=== PATIENT | female | born 1995 | race Caucasian/White ===

== ENCOUNTER → 2022-05-20 15:50 | Outpatient (CLI) | payer OTHER, SELFPAY ==
--- NOTE | ~2022-05-20 | US_ITS ---
EXAMINATION: US OB transvaginal DATE: 05/20/2022 16:23 INDICATION: First trimester dating and viability assessment TECHNIQUE: Real-time pelvic transabdominal and transvaginal ultrasound was performed. COMPARISON: None. FINDINGS: The uterus measures 11.3 x 5.5 x 6.7 cm. There is an intrauterine gestational sac. A yolk sac is identified. heart motion is identified measuring 122 beats per minute (bpm) by M-mode Do ppler. The crown rump length measures 9 mm, which correlates with an estimated gestational age of 6 weeks and 6 day(s) (+/-) 4 day(s). The right ovary measures 2.5 x 1.2 x 2.1 cm. The left ovary measures 3.2 x 1.5 x 2.6 cm. There is nor mal vascular flow in the ovaries. There is no free fluid in the pelvis. IMPRESSION: 1. Live intrauterine with an estimated gestational age of 6 weeks and 6 day(s) (+/-) 4 day( s) and an estimated delivery date of 01/07/2023. Reviewed, dictated and finalized at location A. Y GUN STRIPER IMPRESSION: 1. Live intrauterine with an estimated gestational age of 6 weeks and 6 day(s) (+/-) 4 day(s) and an estimated delivery date of 01/07/2023.
== END ==
PROVIDERS: PCP Advanced Practice Midwife; Visit Provider Advanced Practice Midwife
DX: O36.80X0 Pregnancy with inconclusive fetal viability, not applicable or unspecified (principal); Z3A.01 Less than 8 weeks gestation of pregnancy
CPT/HCPCS: 76817

== ENCOUNTER → 2022-06-19 11:26 | Outpatient (CLI) | payer OTHER, SELFPAY ==
--- NOTE | ~2022-06-19 | US_ITS ---
EXAMINATION: US OB <= 14 weeks fetus INDICATION: with inconclusive viability TECHNIQUE: Sonography of the pelvis was performed by transabdominal and transvaginal techniques. COMPARISON: None. RESULT: Uterus: Orientation: Anteverted. 10.8 x 7.6 x 9.4 cm. Myometrium: homogeneous echogenicity. Gestation: - Intrauterine gestational sac: Single present. - Yolk sac: A small yolk sac is present, not directly measured. - Embryo: Single present. Crescentic fluid echogenicity area posterior to the head, neck, and upper trunk of the embryo. - Ideal rump length: 4.1 cm, corresponding gestational age 11 weeks, 0 days. -Gestational heart rate: present 179 bpm. -Subgestational hematoma: Absent . Right ovary: Not visualized. Left ovary: Not visualized. Pelvis free fluid: None. IMPRESSION: Single, live intrauterine gestation. Fluid echogenicity collection posterior to the head, neck, and u pper trunk of the embryo. This may simply represent normal amniotic fluid, although a large nuchal fo ld or hygroma could appear similarly. Consider chromosomal screening and recommend close sonographic and clinical follow-up. Estimated Gestational Age: 11 weeks, 0 days by crown rump length. BRENDON by ultrasound 01/08/2023. Reviewed, dictated and finalized at location K. UNT ADVISOR IMPRESSION: Single, live intrauterine gestation. Fluid echogenicity collection posterior to the head, neck, and upper trunk of the embryo. This may simply represent silvia l amniotic fluid, although a large nuchal fold or hygroma could appear similarl y. Consider chromosomal screening and recommend close sonographic and clinical follow-up. Estimated Gestational Age: 11 weeks, 0 days by crown rump length. BRENDON by ultra sound 01/08/2023.
== END ==
PROVIDERS: PCP Family Medicine; Visit Provider Advanced Practice Midwife
DX: O36.80X0 Pregnancy with inconclusive fetal viability, not applicable or unspecified (principal); Z3A.11 11 weeks gestation of pregnancy
CPT/HCPCS: 76801

== ENCOUNTER 2022-07-19 16:46 | Outpatient (CLI) | payer OTHER, SELFPAY ==
--- NOTE | ~2022-07-19 | US_ITS ---
EXAMINATION: US OB follow up DATE: 07/19/2022 17:22 INDICATION: demise. History of Pimentel's syndrome. TECHNIQUE: Real-time ultrasound of the pelvis was performed. COMPARISON: 06/19/2022. FINDINGS: There is a nonviable single fetus in breech presentation. The placenta is posterior. heart rate is 0 beats per minute (bpm). cardiac activity and movement are not present. The amnioti c fluid index is subjectively normal. Likely hydrops. The following biometric data were obtained: Biparietal diameter (BPD): 2.79 cm; head circumference (HC): 9.62 cm; femur length (FL): 1.68 cm. These measurements are internally concordant but considerably less than expected when compared to daniela endar dates. As single measurements, these parameters are each equal to the following estimated gestational ages w ith ranges of +/- 2 standard deviations: BPD: 15 weeks 0 days +/- 1 weeks 1 days. HC: 14 weeks 3 days +/- 1 weeks 1 days. FL: 15 weeks 0 days +/- 1 weeks 3 days. estimated gestational age based solely on measurements from this exam is 14 weeks 6 days +/- 1 weeks 0 days. IMPRESSION: Sonographic findings of failure. Results reported telephonically to Lauryn Rankin CNM by Dr. Muniz at 5:48 PM on 07/19/2022. Reviewed, dictated and finalized at location K. RPRISE SALES PERSON
== END 2022-07-19 16:47 | disposition home or self-care (01) ==
PROVIDERS: PCP Family Medicine; Visit Provider Advanced Practice Midwife
DX: O36.80X0 Pregnancy with inconclusive fetal viability, not applicable or unspecified (principal); Z3A.14 14 weeks gestation of pregnancy
CPT/HCPCS: 36415; 76816; 86850; 86900; 86901

== ENCOUNTER 2022-07-20 06:14 | Inpatient (IN) | payer OTHER, SELFPAY ==
[2022-07-20] VITALS (197 sets, daily range): BP systolic 73–156; BP diastolic 38–137; PULSE 58–300; RESP 18; TEMP 37.3–38.5; O2SAT 93–100; BMI 23.8
--- NOTE | 2022-07-20 07:58 | PC.NURSE ---
0750--Ángel Rankin CNM at BS with pt., discussing POC and doing BS u/s for pt.
[2022-07-20 08:02] LABS: Basophils Absolute Auto 0.1 K/mm3 (0.0-0.1); Basophils Percent Auto 0.9 % (0.2-1.2); Eosinophils Absolute Auto 0.1 K/mm3 (0-0.3); Eosinophils Percent Auto 1.6 % (0-4.4); Hematocrit 37.8 % (37.0-47.0); Hemoglobin 13.1 g/dL (12.0-15.0); Immature Granulocyte Absolute 0.06 K/mm3 (0.00-0.031); Immature Granulocyte Percent A 0.9 % (0-0.5); Lymphocytes Absolute Auto 2.13 K/mm3 (0.9-3.2); Lymphocytes Percent Auto 33.5 % (18.3-44.2); Mean Corpuscular HGB Conc 34.7 g/dl (32-36); Mean Corpuscular Hemoglobin 31.3 pg (26-34); Mean Corpuscular Volume 90.4 fl (80-100); Mean Platelet Volume 11.8 fl (7.4-10.4); Monocytes Absolute Auto 0.5 K/mm3 (0.1-0.6); Monocytes Percent Auto 7.2 % (2.6-8.5); Neutrophils Absolute Auto 3.6 K/mm3 (1.3-6.7); Neutrophils Percent Auto 55.9 % (45.5-73.1); Platelet Count Result 145 k/mm3 (150-375); Red Blood Count 4.18 M/mm3 (4.2-5.4); Red Cell Distribution Width 12.5 % (11.5-14.5); White Blood Count 6.4 K/mm3 (4.5-10.0)
[2022-07-20] MEDS: miSOPROStol 200 MCG TABLET 600 MCG VAGINAL ×3 (08:04→18:48)
--- NOTE | 2022-07-20 08:09 | WPDOBADMIT ---
Obstetrics - Admit Note Admission Note: record reviewed. No pertinent additions to the history and/or any subsequent changes in the physical findings that are not consistent with the expected course of the were found. Additions to the history and/or subsequent changes in the physical findings follow. IUFD at 15 weeks.
--- NOTE | 2022-07-20 08:10 | PM.OBPNLAB ---
Pain Control Date/time seen: 07/20/22 0755 Comments: Denies pain Pelvic Exam Dilation (cm): 0 (closed, long, high) station: -4 Amniotic membrane status: Intact Contractions Monitor mode: None Status Comments: IUFD Assessment and Plan Comments: CNM at bedside. Limited bedside US performed and pictures given to pt. Fetus with no cardiac activity. vertex/oblique position identified. Discussed plan of care and all questions answered. 600mct misoprostol placed vaginally. Spouse present and supportive.
[2022-07-20 08:42] LABS: Hepatitis B Surface Antigen Negative (Negative); Rubella IgG Antibody 2.2 IU/ML
[2022-07-20 08:49] LABS: HIV 1/2 Ab P24 Ag Result Negative (Negative)
--- NOTE | 2022-07-20 08:53 | LDADM ---
This patient, Celina Sherwood, was admitted to Labor/Delivery/Recovery 110 on 07/20/22 at 06:14. Plans for labor, pain management and were discussed with patient. Patient/family oriented to hospital policies and general routines including ID bracelet, bed and alarms, visiting hours, pain management, procedures, bathroom and other care routines, personal items, smoking policy, room service/diet and guest tray routines, and visiting hours. Patient/Family are encouraged to report perceived risks to care and to ask questions if they do not understand what they are told or what they should do. See OBIX for further documentation.
[2022-07-20 09:07] LABS: Free T4 Free Thyroxine 1.06 ng/mL (0.78-2.19)
[2022-07-20 09:11] LABS: Glucose 79 mg/dL (65-110)
[2022-07-20 09:41] LABS: Amphetamine Screen Urine Negative (Negative); Barbiturate Screen Urine Negative (Negative); Benzodiazepines Screen Urine Negative (Negative); Cannabinoid Screen Urine Negative (Negative); Cocaine Screen Urine Negative (Negative); Methadone Screen Urine Negative (Negative); Opiate Screen Urine Negative (Negative); Phencyclidine Screen Urine Negative (Negative)
--- NOTE | 2022-07-20 12:22 | PM.OBPNLAB ---
Pain Control Date/time seen: 07/20/22 12:15 Pain control: tolerating well Comments: feeling occasional cramping Pelvic Exam Dilation (cm): 0 (closed, long, high) station: -4 Amniotic membrane status: Intact Contractions Monitor mode: Palpation Contraction pattern: Irregular Contraction intensity: Mild Status Comments: IUFD Assessment and Plan Comments: 2nd dose of misoprostol placed. Cervix remains closed and firm. No bleeding. Discussed expectations and plan of care.
--- NOTE | 2022-07-20 12:30 | PC.NURSE ---
1230--This RN at bedside, patient introductions made. Introduced the Share program and resources that can be available through Share. Discussed and findings along the way with 's genetic disposition. Parents tearful, but appropriately engaging in conversation. Discussed mementos, photos, and plans for disposition of baby. Discussed plans to remain in contact with patient to check in, patient thankful and appreciative of support offered.
[2022-07-20 12:32] LABS: Rapid Plasma Reagin Non-Reactive (NonReactive)
[2022-07-20] MEDS: ONDANSETRON INJ 4 MG/2 ML VIAL IV PUSH (12:49)
[2022-07-20] MEDS: fentaNYL CITRATE INJ (*CRX) 100 MCG/2 ML VIAL IV PUSH (12:55)
[2022-07-20] MEDS: LACTATED RINGERS 1,000 ML 125 ML IV CONT ×2 (13:27→15:48)
--- NOTE | 2022-07-20 13:51 | WPDANESEPP ---
Anes - Eval Pre Procedure Procedure: Labor epidural Date/Time: 07/20/22 13:51 Surgeon: Beto Preop Diagnosis: Pain during labor Pre Op Diagnosis: IUFD/IOL Patient Data Age: 27 Gender: F Height: 1.57 m Weight: 59.09 kg Last Vital Signs Temp 37.5 C 07/20/22 12:14 Pulse 86 07/20/22 13:46 BP 89/42 L 07/20/22 13:46 Pulse Ox 100 07/20/22 13:50 Allergies Allergy/AdvReac Type Severity Reaction Status Date / Time amoxicillin Allergy Rash Verified 07/20/22 07:52 Laboratory Tests 07/20/22 07/20/22 07/20/22 06:57 07:33 07:33 WBC 6.4 K/mm3 K/mm3 (4.5-10.0) RBC 4.18 M/mm3 L M/mm3 (4.2-5.4) Hgb 13.1 g/dL g/dL (12.0-15.0) Hct 37.8 % % (37.0-47.0) MCV 90.4 fl fl (80-100) MCH 31.3 pg pg (26-34) MCHC 34.7 g/dl g/dl (32-36) RDW 12.5 % % (11.5-14.5) Plt Count 145 k/mm3 L k/mm3 (150-375) MPV 11.8 fl H fl (7.4-10.4) Immature Gran % (Auto) 0.9 % H % (0-0.5) Neut % (Auto) 55.9 % % (45.5-73.1) Lymph % (Auto) 33.5 % % (18.3-44.2) [place] % (Auto) 7.2 % % (2.6-8.5) Eos % (Auto) 1.6 % % (0-4.4) Baso % (Auto) 0.9 % % (0.2-1.2) Lymph # (Auto) 2.13 K/mm3 K/mm3 (0.9-3.2) [place] # (Auto) 0.5 K/mm3 K/mm3 (0.1-0.6) Eos # (Auto) 0.1 K/mm3 K/mm3 (0-0.3) Baso # (Auto) 0.1 K/mm3 K/mm3 (0.0-0.1) Abs Immat Gran (auto) 0.06 K/mm3 H K/mm3 (0.00-0.031) Absolute Neuts (auto) 3.6 K/mm3 K/mm3 (1.3-6.7) Absolute Nucleated RBC 0.0 K/mm3 K/mm3 (0.0-0.012) Nucleated RBC % 0.0 % % (0.0-0.2) LA PTT Screen Pending dRVVT Screen Pending dRVVT Additional Test Pending Lupus Anticoag Interp Pending Glucose Vitamin D 25-Hydroxy TSH Free T4 Urine Opiates Screen Negative (Negative) Urine Methadone Screen Negative (Negative) Ur Barbiturates Screen Negative (Negative) Ur Phencyclidine Scrn Negative (Negative) Ur Amphetamine Screen Negative (Negative) U Benzodiazepines Scrn Negative (Negative) Urine Cocaine Screen Negative (Negative) U Cannabinoids Screen Negative (Negative) Beta-2-GPI IgG Ab Beta-2-GPI IgA Ab Beta-2-GPI IgM Ab Anti-Cardiolipin IgG Ab Anti-Cardiolipin IgA Ab Anti-Cardiolipin IgM Ab RPR CMV IgG Ab CMV IgM Ab Hep Bs Antigen HIV 1&2 Ab/P24 Ag 4thGn Rubella IgG Antibody Blood Type Antibody Screen KB Hemoglobin 07/20/22 07/20/22 07/20/22 07:33 07:33 07:33 WBC RBC Hgb Hct MCV MCH MCHC RDW Plt Count MPV Immature Gran % (Auto) Neut % (Auto) Lymph % (Auto) [place] % (Auto) Eos % (Auto) Baso % (Auto) Lymph # (Auto) [place] # (Auto) Eos # (Auto) Baso # (Auto) Abs Immat Gran (auto) Absolute Neuts (auto) Absolute Nucleated RBC Nucleated RBC % LA PTT Screen dRVVT Screen dRVVT Additional Test Lupus Anticoag Interp Glucose 79 mg/dL mg/dL (65-110) Vitamin D 25-Hydroxy TSH 3.830 uIU/mL uIU/mL (0.465-4.680) Free T4 Urine Opiates Screen Urine Methadone Screen Ur Barbiturates Screen Ur Phencyclidine Scrn Ur Amphetamine Screen U Benzodiazepines S
[2022-07-20] MEDS: LACTATED RINGERS 1,000 ML 999 ML IV CONT ×2 (13:53→14:32)
[2022-07-20 14:36] LABS: Vitamin D 25 Hydroxy 40.9 ng/mL
--- NOTE | 2022-07-20 19:17 | PM.OBPNLAB ---
Pain Control Date/time seen: 07/20/22 4034 Pain control: epidural Pelvic Exam Dilation (cm): 0 (closed, long, high) Effacement (%): 50 station: -4 Amniotic membrane status: Intact Comments: only able to palpate anterior aspect of cervix. Unable to palpate os. Contractions Monitor mode: Palpation Contraction pattern: Irregular Contraction intensity: Mild Status Comments: IUFD Assessment and Plan Comments: Misoprostol 600mcg (dose #3 placed vaginally). Spouse present and supportive. Plan to have RN check cervix in 6 hours. If unchanged, will plan dose #4.
--- NOTE | 2022-07-20 21:23 | PM.OBPRVD ---
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 IUFD diagnosed at 15 weeks 6 days. Narrative: IUFD diagnosed on July 19 in the office and pt sent to ultrasound for final confirmation. Admitted this am for IOL. Was given 3 doses of 200mcg Misoprostol vaginally. She precipitously delivered a stillborn infant. CNM called and arrived at hospital with placenta still undelivered. Bleeding stable and cervix firm, fingertip dilated, and posterior. The cervix was periodically evaluated and at about one hour, the placenta was palpated partially in the cervix and there was about 100ml dark red blood expulsed. A speculum was inserted into the vagina and the placenta was slowly grasped and gentle traction applied. More of the placenta appeared at the os but CNM was unable to remove it entirely. Dr. Pérez to bedside and the remainder of the placenta was manually removed in pieces. Ancef 2 grams will be given for infection phophylaxis. [place] Baby Date of : 07/20/22 Time of : 20:27 Weeks of gestation at delivery: 15 gender: Female Weight (ounces): 0 (38 grams) presentation: vertex Placenta delivery description: Manual Removal Cord Vessel Description: Clamped/Cut score one minute: 0 score five minutes: 0 score ten minutes: 0
--- NOTE | 2022-07-20 21:27 | PM.OBDSVD ---
DS: Admitting Diagnosis Discharge Date 07/21/2022 Admitting Diagnosis 27 y.o. . IUFD at 15 weeks 3 days. Rubella Non-Immune DS: Discharge Diagnosis Discharge Diagnosis (1) IUFD (intrauterine ): Status: Acute (2) (normal spontaneous vaginal delivery): Code(s): O80 - Encounter for full-term uncomplicated delivery Status: Acute (3) Grieving: Code(s): F43.21 - Adjustment disorder with depressed mood Status: Acute OB - DS: Summary Hospital Course Hospital Course: uncomplicated OB Procedures : Ultrasound OB Procedures Intrapartum: Spontaneous Vag Delivery OB Procedures: : Antibiotics and Rubella lg Peripartum Data Infant Delivery Method: Natural Vaginal Laceration Description: None Episiotomy description: None complications: none Status at Discharge Overall status at discharge: patient is progressing back to baseline Time Spent with Patient Time attestation: Total time spent providing and/or coordinating discharge services: Exam Narrative: Alert and oriented. Mood is pleasant and cooperative. Urinating without difficulty. Denies passing any large clots. Perineum with minimal edema. Fundus firm and below umbilicus. Const: General: cooperative, healthy appearing, no acute distress and alert Orientation/consciousness: patient oriented x3 Limitations: no limitations Resp: Effort & Inspection: normal respiratory effort Auscultation: clear to auscultation bilaterally Cardio: Rate: regular rate GI: Inspection: normal to inspection Neuro: General: patient oriented x3 Extrem: General: normal to inspection Psych: Appearance: grossly normal Mental Status: mental status grossly normal Affect: normal affect Thought process: Normal thought process present DS: Data Data Completed and Pending Labs on day of discharge: Labs from last 24 hours 07/20/22 07/20/22 07/20/22 07:34 07:34 07:34 WBC RBC Hgb Hct MCV MCH MCHC RDW Plt Count MPV Immature Gran % (Auto) Neut % (Auto) Lymph % (Auto) [place] % (Auto) Eos % (Auto) Baso % (Auto) Lymph # (Auto) [place] # (Auto) Eos # (Auto) Baso # (Auto) Abs Immat Gran (auto) Absolute Neuts (auto) Absolute Nucleated RBC Nucleated RBC % LA PTT Screen dRVVT Screen dRVVT Additional Test Lupus Anticoag Interp Glucose Vitamin D 25-Hydroxy TSH Free T4 Urine Opiates Screen Urine Methadone Screen Ur Barbiturates Screen Ur Phencyclidine Scrn Ur Amphetamine Screen U Benzodiazepines Scrn Urine Cocaine Screen U Cannabinoids Screen Beta-2-GPI IgG Ab Beta-2-GPI IgA Ab Beta-2-GPI IgM Ab Anti-Cardiolipin IgG Ab Anti-Cardiolipin IgA Ab Anti-Cardiolipin IgM Ab RPR Non-reactive CMV IgG Ab CMV IgM Ab Hep Bs Antigen Negative HIV 1&2 Ab/P24 Ag 4thGn Rubella IgG Antibody 2.2 L Blood Type A Positive Antibody Screen Negative KB Hemoglobin Negative 07/20/22 07/20/22 07/20/22 07:34 07:34 07:33 WBC RBC Hgb Hct MCV MCH MCHC RDW Plt Count MPV Immature Gran % (Auto) Neut % (Auto) Lymph % (Auto) [place] % (Auto) Eos % (Auto) Baso % (Auto) Lymph # (Auto) [place] # (Auto) Eos # (Auto) Baso # (Auto) Abs Immat Gran (auto) Absolute Neuts (auto) Absolute Nucleated RBC Nucleated RBC % LA PTT Screen dRVVT Screen dRVVT Additional Test Lupus Anticoag Interp Glucose Vitamin D 25-Hydroxy 40.9 TSH Free T4 1.06 Urine Opiates Screen Urine Methadone Screen Ur Barbiturates Screen Ur Phencyclidine Scrn Ur Amphetamine Screen U Benzodiazepines Scrn Urine Cocaine Screen U Cannabinoids Screen Beta-2-GPI IgG Ab Beta-2-GPI IgA Ab Beta-2-GPI IgM Ab Anti-Cardiolipin IgG Ab Pending Anti-Cardiolipin IgA Ab Pendin
--- NOTE | 2022-07-20 21:34 | PM.IMHP ---
H&P: HPI History of Present Illness Date/Time: 07/20/22 21:00 Chief Complaint: None Narrative: 27 y.o. . s/p vaginal of IUFD at 15weeks, 4 days. Review of Systems Review of Systems: All systems reviewed & are unremarkable except as noted in HPI and below Constitutional: Constitutional: Reports as per HPI Genitourinary: Comments: Gutierrez catheter patent and draining clear, yellow urine. [facility] Social History Social History Smoking status: Never smoker Second hand tobacco smoke exposure: No Substance use: never Lack of Transportation: No Lack of Food: Never True Current Housing: I Have Housing Concerned About Future Housing: No Difficulty Paying Gas/Electric Bills: No Difficulty Paying for Meds: No Currently Unemployed: No Education: Master's Degree or Higher Difficulty w/ Childcare or Family Care: No Spiritual care concerns: No Meds Home Medications and Allergies Allergies Allergy/AdvReac Type Severity Reaction Status Date / Time amoxicillin Allergy Rash Verified 07/20/22 07:52 Vital Signs Vital Signs - 24 hr 07/20/22 07:14 07/20/22 08:09 07/20/22 12:14 Temperature 99.2 F 99.5 F Pulse Rate 95 92 97 Respiratory Rate Blood Pressure 112/76 124/81 108/68 Pulse Oximetry 07/20/22 12:53 07/20/22 12:58 07/20/22 13:03 Temperature Pulse Rate Respiratory Rate Blood Pressure Pulse Oximetry 100 100 100 07/20/22 13:27 07/20/22 13:29 07/20/22 13:32 Temperature Pulse Rate 78 97 Respiratory Rate Blood Pressure 96/51 L 114/38 L Pulse Oximetry 100 100 07/20/22 13:37 07/20/22 13:39 07/20/22 13:42 Temperature Pulse Rate 82 Respiratory Rate Blood Pressure 103/47 L Pulse Oximetry 100 100 07/20/22 13:46 07/20/22 13:47 07/20/22 13:50 Temperature Pulse Rate 86 Respiratory Rate Blood Pressure 89/42 L Pulse Oximetry 100 100 07/20/22 13:55 07/20/22 13:57 07/20/22 13:59 Temperature Pulse Rate 102 H Respiratory Rate Blood Pressure 103/54 L 120/75 Pulse Oximetry 100 07/20/22 14:00 07/20/22 14:01 07/20/22 14:03 Temperature Pulse Rate 153 H 90 Respiratory Rate Blood Pressure 92/46 L 112/64 Pulse Oximetry 100 07/20/22 14:05 07/20/22 14:06 07/20/22 14:09 Temperature Pulse Rate 83 79 Respiratory Rate Blood Pressure 114/61 108/49 L Pulse Oximetry 100 07/20/22 14:10 07/20/22 14:11 07/20/22 14:13 Temperature Pulse Rate 115 H 300 H Respiratory Rate Blood Pressure 84/53 L 107/56 L Pulse Oximetry 100 07/20/22 14:15 07/20/22 14:16 07/20/22 14:19 Temperature Pulse Rate 170 H 94 Respiratory Rate Blood Pressure 114/72 73/46 L Pulse Oximetry 95 07/20/22 14:20 07/20/22 14:21 07/20/22 14:23 Temperature Pulse Rate 95 94 Respiratory Rate Blood Pressure 84/58 L 81/66 L Pulse Oximetry 100 07/20/22 14:25 07/20/22 14:26 07/20/22 14:29 Temperature Pulse Rate 92 121 H Respiratory Rate Blood Pressure 115/56 L 74/56 L Pulse Oximetry 100 07/20/22 14:30 07/20/22 14:31 07/20/22 14:34 Temperature Pulse Rate 94 Respiratory Rate Blood Pressure 96/71 L 156/137 H Pulse Oximetry 100 07/20/22 14:35 07/20/22 14:37 07/20/22 14:38 Temperature Pulse Rate 132 H 101 H Respiratory Rate Blood Pressure 91/48 L 84/71 L Pulse Oximetry 100 07/20/22 14:40 07/20/22 14:41 07/20/22 14:43 Temperature Pulse Rate 97 110 H Respiratory Rate Blood Pressure 104/45 L 119/55 L Pulse Oximetry 100 07/20/22 14:45 07/20/22 14:46 07/20/22 14:48 Temperature Pulse Rate 98 94 Respiratory Rate Blood Pressure 112/69 105/44 L Pulse Oximetry 100 07/20/22 14:50 07/20/22 14:55 07/20/22 15:00 Temperature Pulse Rate Respiratory Rate Blood Pressure Pulse Oximetry 100 100 100 07/20/22 15:01 07/20/22 15:07 01
--- NOTE | 2022-07-20 22:45 | PC.NURSE ---
2247--This RN at bedside with patient and her . Discussed delivery, feelings at this time. RN stated that pictures have been taken, hand/footprints done and infant is available for them if/when they are ready. Patient and had many questions regarding the state of the baby to help them decide on their ability to see or hold her. We discussed that she would remain on our unit, so she would be available to them at any time. Parents thankful for the time to think things over and process.
[2022-07-20] MEDS: ceFAZolin 2 GM/D5W 50 ML 2 GM/50 ML BAG IVPB (23:00)
[2022-07-21] VITALS (17 sets, daily range): BP systolic 80–100; BP diastolic 48–63; PULSE 74–93; RESP 14–16; TEMP 36.9–37.1; O2SAT 97–99
--- NOTE | 2022-07-21 06:15 | PC.NURSE ---
Report given to Toño Heredia RN
--- NOTE | 2022-07-21 06:37 | PC.NURSE ---
Called 911 Operator, Donald Sauer, to report demise. Nothing further needs to be done.
--- NOTE | 2022-07-21 07:31 | PC.NURSE ---
MTS called to report demise. Reported to Rafaela at [facility].
--- NOTE | 2022-07-21 07:48 | PM.OBPNVD ---
OB - PN: Subj Subjective Date/time seen: 07/21/22 07:35 Patient comments: no complaints and pain well controlled baby status: stillbirth OB - PN: Obj Data Labs 07/20/22 07:33 07/20/22 07:33 Labs: Laboratory Results - last 24 hr 07/20/22 07/20/22 07/20/22 06:57 07:33 07:33 WBC 6.4 RBC 4.18 L Hgb 13.1 Hct 37.8 MCV 90.4 MCH 31.3 MCHC 34.7 RDW 12.5 Plt Count 145 L MPV 11.8 H Immature Gran % (Auto) 0.9 H Neut % (Auto) 55.9 Lymph % (Auto) 33.5 [place] % (Auto) 7.2 Eos % (Auto) 1.6 Baso % (Auto) 0.9 Lymph # (Auto) 2.13 [place] # (Auto) 0.5 Eos # (Auto) 0.1 Baso # (Auto) 0.1 Abs Immat Gran (auto) 0.06 H Absolute Neuts (auto) 3.6 Absolute Nucleated RBC 0.0 Nucleated RBC % 0.0 Glucose 79 Vitamin D 25-Hydroxy TSH 3.830 Free T4 Urine Opiates Screen Negative Urine Methadone Screen Negative Ur Barbiturates Screen Negative Ur Phencyclidine Scrn Negative Ur Amphetamine Screen Negative U Benzodiazepines Scrn Negative Urine Cocaine Screen Negative U Cannabinoids Screen Negative RPR Hep Bs Antigen HIV 1&2 Ab/P24 Ag 4thGn Rubella IgG Antibody Blood Type Antibody Screen KB Hemoglobin 07/20/22 07/20/22 07/20/22 07:33 07:33 07:34 WBC RBC Hgb Hct MCV MCH MCHC RDW Plt Count MPV Immature Gran % (Auto) Neut % (Auto) Lymph % (Auto) [place] % (Auto) Eos % (Auto) Baso % (Auto) Lymph # (Auto) [place] # (Auto) Eos # (Auto) Baso # (Auto) Abs Immat Gran (auto) Absolute Neuts (auto) Absolute Nucleated RBC Nucleated RBC % Glucose Vitamin D 25-Hydroxy 40.9 TSH Free T4 1.06 Urine Opiates Screen Urine Methadone Screen Ur Barbiturates Screen Ur Phencyclidine Scrn Ur Amphetamine Screen U Benzodiazepines Scrn Urine Cocaine Screen U Cannabinoids Screen RPR Hep Bs Antigen HIV 1&2 Ab/P24 Ag 4thGn Negative Rubella IgG Antibody Blood Type Antibody Screen KB Hemoglobin 07/20/22 07/20/22 07/20/22 07:34 07:34 07:34 WBC RBC Hgb Hct MCV MCH MCHC RDW Plt Count MPV Immature Gran % (Auto) Neut % (Auto) Lymph % (Auto) [place] % (Auto) Eos % (Auto) Baso % (Auto) Lymph # (Auto) [place] # (Auto) Eos # (Auto) Baso # (Auto) Abs Immat Gran (auto) Absolute Neuts (auto) Absolute Nucleated RBC Nucleated RBC % Glucose Vitamin D 25-Hydroxy TSH Free T4 Urine Opiates Screen Urine Methadone Screen Ur Barbiturates Screen Ur Phencyclidine Scrn Ur Amphetamine Screen U Benzodiazepines Scrn Urine Cocaine Screen U Cannabinoids Screen RPR Non-reactive Hep Bs Antigen Negative HIV 1&2 Ab/P24 Ag 4thGn Rubella IgG Antibody 2.2 L Blood Type A Positive Antibody Screen Negative KB Hemoglobin Negative OB - PN A/P Time Spent With Patient Time: Total time spent is greater than 50% in coordination of care (as documented) at patient's floor/unit and/or counseling patient: Review of Systems Review of Systems: All systems reviewed & are unremarkable except as noted in HPI and below Exam Narrative: Alert and oriented. Mood is pleasant and cooperative. Urinating without difficulty. Denies passing any large clots. Perineum with minimal edema. Fundus firm and below umbilicus. Const: General: cooperative, healthy appearing, no acute distress and alert Orientation/consciousness: patient oriented x3 Limitations: no limitations Resp: Effort & Inspection: normal respiratory effort Auscultation: clear to auscultation bilaterally Cardio: Rate: regular rate GI: Inspection: normal to inspection Neuro: General: patient oriented x3 Extrem: General: normal to inspection Psych: Appearance: grossly norm
[2022-07-21] MEDS: MEASLES,MUMPS,RUBELLA VACCINE 0.5 ML VIAL SUB-Q (10:04)
[2022-07-21] MEDS: MULTIVIT/MIN/PREN/FOL AC/IRON TABLET 1 TAB PO (10:04)
[2022-07-21 11:18] LABS: Hematocrit 32.6 % (37.0-47.0); Hemoglobin 11.2 g/dL (12.0-15.0); Mean Corpuscular HGB Conc 34.4 g/dl (32-36); Mean Corpuscular Hemoglobin 31.6 pg (26-34); Mean Corpuscular Volume 92.1 fl (80-100); Mean Platelet Volume 12.3 fl (7.4-10.4); Platelet Count Result 127 k/mm3 (150-375); Red Blood Count 3.54 M/mm3 (4.2-5.4); Red Cell Distribution Width 12.4 % (11.5-14.5)
[2022-07-21 11:19] LABS: Basophils Percent Auto 0.5 % (0.2-1.2); Eosinophils Percent Auto 1.4 % (0-4.4); Immature Granulocyte Absolute 0.06 K/mm3 (0.00-0.031); Immature Granulocyte Percent A 0.7 % (0-0.5); Lymphocytes Percent Auto 28.6 % (18.3-44.2); Monocytes Percent Auto 9.1 % (2.6-8.5); Neutrophils Absolute Auto 4.8 K/mm3 (1.3-6.7); Neutrophils Percent Auto 59.7 % (45.5-73.1)
[2022-07-21 11:20] LABS: Eosinophils Absolute Auto 0.1 K/mm3 (0-0.3); Monocytes Absolute Auto 0.7 K/mm3 (0.1-0.6); White Blood Count 8.1 K/mm3 (4.5-10.0)
[2022-07-23 03:18] LABS: Anti Cardio Antibody IgM <2.0 MPL-U/mL (<20.0); Anti Cardiolipin Antibody IgA <2.0 APL-U/mL (<20.0); Anti Cardiolipin Antibody IgG <2.0 GPL-U/mL (<20.0)
[2022-07-23 16:24] LABS: CMV IgG Antibody <0.60 U/mL (<0.60)
[2022-07-24 12:09] LABS: CMV IgM Antibody <30.00 AU/mL (<30.00)
[2022-07-26 11:29] LABS: Lupus dRVVT Screen 32 sec (<=45); PTT-LA Screen 30 sec (<=40)
== END 2022-07-21 10:30 | disposition home or self-care (01) | DRG 779 ==
PROVIDERS: Admitting Provider Advanced Practice Midwife; PCP Family Medicine; Referring Provider Advanced Practice Midwife; Visit Provider Advanced Practice Midwife
DX: O02.1 Missed abortion (principal); Z3A.15 15 weeks gestation of pregnancy; O35.14 Maternal care for (suspected) chromosomal abnormality in fetus, Turner Syndrome; O99.342 Other mental disorders complicating pregnancy, second trimester; F43.21 Adjustment disorder with depressed mood
CPT/HCPCS: 36415; 76816; 80307; 82306; 82947; 84439; 84443; 85025; 85460; 85613; 85730; 86146; 86147; 86592; 86644; 86645; 86703; 86762; 86850; 86900; 86901; 87340; 88305; 88307; 90710; A9270; G0432; J0131; J0690; J2405; J2795; J3010; J7120

== ENCOUNTER → 2023-05-31 15:53 | Outpatient (CLI) | payer OTHER, SELFPAY ==
--- NOTE | ~2023-05-31 | US_ITS ---
Pelvic ultrasound. Clinical History: First trimester , family history of congenital malformation Technique: Realtime transabdominal and transvaginal scanning of the pelvis was performed. Color flow Doppler and Doppler spectral analysis were performed. Findings: The uterus is anteverted, and contains an intrauterine gestation. [place]-rump length of 2.5 cm corresponds to an estimated gestational age of 9 weeks 1 day. heart rate is 172 bpm. Small s ubchorionic hemorrhage measures 2.0 x 1.2 x 0.5 cm The right ovary measures 2.5 x 1.8 x 2.3 cm. No significant right ovarian or adnexal mass is seen. The left ovary measures 3.7 x 1.3 x 3.3 cm. No significant left ovarian or adnexal mass is seen. There is no evidence of free fluid in the cul de sac. Impression: Live intrauterine gestation with estimated gestational age of 9 weeks 1 day. heart rate is 172 bpm. Sonographic BRENDON is 01/02/2024. Small subchorionic hemorrhage, as noted above. Reviewed, dictated and finalized at location M. OPERATOR Impression: Live intrauterine gestation with estimated gestational age of 9 weeks 1 day. Fe elisa heart rate is 172 bpm. Sonographic BRENDON is 01/02/2024. Small subchorionic hemorrhage, as noted above.
== END ==
PROVIDERS: PCP Advanced Practice Midwife; Visit Provider Advanced Practice Midwife
DX: O46.90 Antepartum hemorrhage, unspecified, unspecified trimester (principal); O36.80X0 Pregnancy with inconclusive fetal viability, not applicable or unspecified; Z82.79 Family history of other congenital malformations, deformations and chromosomal abnormalities; Z3A.00 Weeks of gestation of pregnancy not specified
CPT/HCPCS: 76801

== ENCOUNTER → 2023-06-30 15:44 | Outpatient (CLI) | payer OTHER, SELFPAY ==
--- NOTE | ~2023-06-30 | US_ITS ---
EXAMINATION: US OB follow up DATE: 06/30/2023 16:15 INDICATION: Maternal care for specified problems. Subchorionic hematoma. TECHNIQUE: Real-time ultrasound of the pelvis was performed. The interpreting radiologist was not pre sent for the study. COMPARISON: None. FINDINGS: There is a single living fetus in vertex presentation. The placenta is anterior and not low-lying wi th caudal margin 5.6 cm from the internal cervical os. The previously identified small subchorionic h ematoma is not visualized and has likely resolved. heart rate is 161 beats per minute (bpm). Th e amniotic fluid volume is subjectively normal. The following biometric data were obtained: BPD: 2.5 cm -> 14 weeks 2 days Head circumference: 9.7 cm -> 14 weeks 3 days Abdominal circumference: 7.5 cm -> 14 weeks 0 days Femur length: 1.0 cm -> 12 weeks 6 days These measurements are concordant. Head circumference to abdominal circumference ratio: 1.29 (normal range 1.10-1.34). Estimated weight: 77 g (+/-) 12 g. IMPRESSION: 1. Single living fetus in vertex presentation with heart rate of 161 bpm. 2. Estimated weight is 35th percentile by Hadlock criteria when 12/30/2023 is used as the estima brayden date of delivery (BRENDON). Please correlate with clinical information or earlier ultrasounds for mos t accurate BRENDON. 3. Normal anterior placenta. Prior subchorionic hematoma is no longer appreciated. Reviewed, dictated and finalized at location A. IMPRESSION: 1. Single living fetus in vertex presentation with heart rate of 161 bpm. 2. Estimated weight is 35th percentile by Hadlock criteria when 12/30/2023 is used as the estimated date of delivery (BRENDON). Please correlate with clinica l information or earlier ultrasounds for most accurate BRENDON. 3. Normal anterior placenta. Prior subchorionic hematoma is no longer appreciat ed.
== END ==
PROVIDERS: PCP Advanced Practice Midwife; Visit Provider Advanced Practice Midwife
DX: O36.8910 Maternal care for other specified fetal problems, first trimester, not applicable or unspecified (principal); Z3A.00 Weeks of gestation of pregnancy not specified
CPT/HCPCS: 76816

== ENCOUNTER → 2023-08-01 15:28 | Outpatient (CLI) | payer OTHER, SELFPAY ==
--- NOTE | ~2023-08-01 | US_ITS ---
US OB /maternal detail DATE: 08/01/2023 16:02 INDICATION: anatomy screen TECHNIQUE: Real-time imaging and Doppler analysis COMPARISON: 06/30/2023 obstetrical ultrasound FINDINGS: Live dupree intrauterine gestation, fetus in transverse lie, head to maternal righ t. Anterior low-lying placenta, lower margin extending into the internal os. Cervical length is 4 cm. Subjectively normal amount of amniotic fluid. ventricles, choroid plexus, cerebellum, cisterna magna and nuchal fold are normal. upper lip, spine, diaphragm appear normal. Fluid is demonstrated in the stomach and urinary bladder. No hydronephrosis. 4 chamber heart with heart rate of 140 bpm. Three-vessel umbilical cord with normal insertion at abdominal wall. 4 extremities are do cumented. Biparietal diameter 4.0 cm; 18 weeks 3 days Head circumference 15.64 cm; 18 weeks 4 days Abdominal circumference 12.74 cm; 18 weeks 2 days Femur length 2.59 cm; 17 weeks 6 days Composite age by Hadlock formula is 18 weeks 2 days +/- 1 week 2 days with BRENDON of 12/31/2023, compared to 01/02/2024 by LMP. Estimated weight is 226.4 +/- 34 g. Estimated weight-GP: 54.9% Head circumference/abdominal circumference 1.23, within normal range of 1.08-1.27 Femur length/head circumference 16.56, within normal range of 15.89-18.09 IMPRESSION: Composite age by Hadlock formula is 18 weeks 2 days +/- 1 week 2 days with BRENDON of 12/31/19 24, compared to 01/02/2024 by LMP. Estimated weight is 226.4 +/- 34 g. Transverse lie Low lying placenta Normal amount of amniotic fluid Reviewed, dictated and finalized at Location A. Reviewed, dictated and finalized at location L. DRIVER IMPRESSION: Composite age by Hadlock formula is 18 weeks 2 days +/- 1 week 2 da ys with BRENDON of 12/31/2023, compared to 01/02/2024 by LMP. Estimated weight is 226.4 +/- 34 g. Transverse lie Low lying placenta Normal amount of amniotic fluid
== END ==
PROVIDERS: PCP Advanced Practice Midwife; Visit Provider Advanced Practice Midwife
DX: O44.42 Low lying placenta NOS or without hemorrhage, second trimester (principal); Z3A.18 18 weeks gestation of pregnancy
CPT/HCPCS: 76805

== ENCOUNTER 2023-09-05 15:29 | Outpatient (CLI) | payer OTHER, SELFPAY ==
--- NOTE | ~2023-09-05 | US_ITS ---
EXAMINATION: US OB follow up DATE: 09/05/2023 16:15 INDICATION: Low-lying placenta TECHNIQUE: Real-time ultrasound of the pelvis was performed. The interpreting radiologist was not pre sent for the study. COMPARISON: None. FINDINGS: There is a single living fetus in each presentation. The placenta is anterior and not low-lying with caudal margin 5-6 cm from the internal cervical os. Normal cervical length of 4.1 cm. heart ra te is 152 beats per minute (bpm). The amniotic fluid index is technically normal. IMPRESSION: 1. Single living fetus in breech presentation with heart rate of 152 bpm. 2. Anterior placenta which is not low-lying with caudal margin 5-6 cm from the internal cervical os. Reviewed, dictated and finalized at location A.
== END 2023-09-05 15:30 ==
LOC: MICIMG 15:30
PROVIDERS: PCP Advanced Practice Midwife; Visit Provider Advanced Practice Midwife
DX: O44.42 Low lying placenta NOS or without hemorrhage, second trimester (principal); Z3A.00 Weeks of gestation of pregnancy not specified
CPT/HCPCS: 76816

== ENCOUNTER 2023-10-26 15:48 | Outpatient (CLI) | payer OTHER, SELFPAY ==
--- NOTE | ~2023-10-26 | US_ITS ---
EXAMINATION: US OB follow up DATE: 10/26/2023 16:16 INDICATION: Estimated size less than expected for estimated gestational age TECHNIQUE: Real-time ultrasound of the pelvis was performed. The interpreting radiologist was not pre sent for the study. COMPARISON: None. FINDINGS: There is a single living fetus in vertex presentation. The placenta is anterior. heart rate is 135 beats per minute (bpm). The amniotic fluid index is 13.4 cm, which is normal (5th%-95%: 9.0-23. 4 cm at 30 weeks estimated gestational age). Cervical length of approximately 3.9 cm. The following biometric data were obtained: BPD: 7.8 cm -> 31 weeks 2 days Head circumference: 28.4 cm -> 31 weeks 1 days Abdominal circumference: 27.9 cm -> 31 weeks 6 days Femur length: 5.7 cm -> 30 weeks 0 days These measurements are concordant. Head circumference to abdominal circumference ratio: 1.02 (normal range 0.96-1.17). Estimated weight: 1719 g (+/-) 258 g or 3 lbs. 13 oz. (+/-) 9 oz. IMPRESSION: 1. Single living fetus in vertex presentation with heart rate of 135 bpm. 2. Normal amniotic fluid index of 13.4 cm. 3. Estimated weight is 70th percentile by Hadlock criteria when 01/02/2024 is used as the estima brayden date of delivery (BRENDON). Please correlate with clinical information or earlier ultrasounds for mos t accurate BRENDON. Reviewed, dictated and finalized at location A. IMPRESSION: 1. Single living fetus in vertex presentation with heart rate of 135 bpm. 2. Normal amniotic fluid index of 13.4 cm. 3. Estimated weight is 70th percentile by Hadlock criteria when 01/02/2024 is used as the estimated date of delivery (BRENDON). Please correlate with clinica l information or earlier ultrasounds for most accurate BRENDON.
== END 2023-10-26 15:49 ==
PROVIDERS: PCP Advanced Practice Midwife; Visit Provider Advanced Practice Midwife
DX: O36.5930 Maternal care for other known or suspected poor fetal growth, third trimester, not applicable or unspecified (principal); Z3A.00 Weeks of gestation of pregnancy not specified
CPT/HCPCS: 76816

== ENCOUNTER 2023-12-27 15:54 | Inpatient (IN) | payer OTHER, SELFPAY ==
[2023-12-27] VITALS (28 sets, daily range): BP systolic 107–130; BP diastolic 71–85; PULSE 91–111; TEMP 36.9–37.2; BMI 29.8
[2023-12-27 16:52] LABS: Basophils Percent Auto 0.5 % (0.2-1.2); Eosinophils Absolute Auto 0.1 K/mm3 (0-0.3); Eosinophils Percent Auto 0.9 % (0-4.4); Hematocrit 35.3 % (37.0-47.0); Hemoglobin 11.8 g/dL (12.0-15.0); Immature Granulocyte Absolute 0.21 K/mm3 (0.00-0.031); Immature Granulocyte Percent A 2.6 % (0-0.5); Lymphocytes Absolute Auto 1.62 K/mm3 (0.9-3.2); Lymphocytes Percent Auto 20.1 % (18.3-44.2); Mean Corpuscular HGB Conc 33.4 g/dl (32-36); Mean Corpuscular Hemoglobin 31.1 pg (26-34); Mean Corpuscular Volume 93.1 fl (80-100); Mean Platelet Volume 12.4 fl (7.4-10.4); Monocytes Absolute Auto 0.6 K/mm3 (0.1-0.6); Neutrophils Absolute Auto 5.5 K/mm3 (1.3-6.7); Neutrophils Percent Auto 67.9 % (45.5-73.1); Platelet Count Result 101 k/mm3 (150-375); Red Blood Count 3.79 M/mm3 (4.2-5.4); White Blood Count 8.1 K/mm3 (4.5-10.0)
--- NOTE | 2023-12-27 16:53 | LDADM ---
This patient, Celina Sherwood, was admitted to Labor/Delivery/Recovery 109 on 12/27/23 at 15:54. Plans for labor, pain management and were discussed with patient. Patient/family oriented to hospital policies and general routines including ID bracelet, bed and alarms, visiting hours, pain management, procedures, bathroom and other care routines, personal items, smoking policy, room service/diet and guest tray routines, security routines, and visiting hours. Patient/Family are encouraged to report perceived risks to care and to ask questions if they do not understand what they are told or what they should do. See OBIX for further documentation.
[2023-12-27] MEDS: miSOPROStol 25 MCG TABLET BUCCAL (17:41)
--- NOTE | 2023-12-27 17:44 | WPDANESEPP ---
Anes - Eval Pre Procedure Procedure: Labor Epidural Date/Time: 12/27/23 17:44 Surgeon: Nancy Preop Diagnosis: Labor pain Pre Op Diagnosis: IOL Patient Data Age: 28 Gender: F Height: 1.57 m Weight: 74 kg Last Vital Signs Pulse 101 H 12/27/23 17:30 BP 115/79 12/27/23 17:30 O2 Del Method Room Air 12/27/23 16:53 Allergies Allergy/AdvReac Type Severity Reaction Status Date / Time amoxicillin Allergy Rash Verified 12/02/23 12:40 Home Medications Medication Instructions Recorded Confirmed Type aspirin 81 mg capsule 81 mg PO DAILY 12/02/23 12/02/23 History escitalopram oxalate 10 mg tablet 10 mg PO DAILY 12/02/23 12/02/23 History (Lexapro) vits no.126-ferrous fum 1 tablet PO DAILY 12/02/23 12/02/23 History 28 mg iron-folic acid 800 mcg tablet (Classic ) Laboratory Tests 12/27/23 16:46 WBC 8.1 K/mm3 (4.5-10.0) RBC 3.79 L M/mm3 (4.2-5.4) Hgb 11.8 L g/dL (12.0-15.0) Hct 35.3 L % (37.0-47.0) MCV 93.1 fl (80-100) MCH 31.1 pg (26-34) MCHC 33.4 g/dl (32-36) RDW 13.0 % (11.5-14.5) Plt Count 101 L k/mm3 (150-375) MPV 12.4 H fl (7.4-10.4) Immature Gran % (Auto) 2.6 H % (0-0.5) Neut % (Auto) 67.9 % (45.5-73.1) Lymph % (Auto) 20.1 % (18.3-44.2) [place]rie % (Auto) 8.0 % (2.6-8.5) Eos % (Auto) 0.9 % (0-4.4) Baso % (Auto) 0.5 % (0.2-1.2) Lymph # (Auto) 1.62 K/mm3 (0.9-3.2) [place]rie # (Auto) 0.6 K/mm3 (0.1-0.6) Eos # (Auto) 0.1 K/mm3 (0-0.3) Baso # (Auto) 0.0 K/mm3 (0.0-0.1) Abs Immat Gran (auto) 0.21 H K/mm3 (0.00-0.031) Absolute Neuts (auto) 5.5 K/mm3 (1.3-6.7) Absolute Nucleated RBC 0.000 K/mm3 (0.0-0.012) Nucleated RBC % 0.0 % (0.0-0.2) RPR Pending HIV 1&2 Ab/P24 Ag 4thGn Pending Blood Type A Positive Antibody Screen Pending : gestational age (BRENDON 12/28/23, ) Patient hx anesthesia problems: none Family hx anesthesia problems: none Results Review: All pre-operative results and documents have been reviewed as part of the pre-operative evaluation. [facility] Family History Family History Mother Multiple sclerosis Grandparent Diabetes mellitus Grandparent Cerebrovascular accident Grandparent Cerebrovascular accident Social History Social History Smoking status: Never smoker Second hand tobacco smoke exposure: No Substance use: never Do You Feel Safe in your Home?: No Lack of Transportation: No Lack of Food: Never True Current Housing: I Have Housing Concerned About Future Housing: No Difficulty Paying Gas/Electric Bills: No Difficulty Paying for Meds: No Currently Unemployed: No Education: Master's Degree or Higher Difficulty w/ Childcare or Family Care: No Spiritual care concerns: No Exam Day of Procedure 12/27/23 17:44 Patient weight: normal Heart: regular rate and rhythm Lungs: normal air movement Airway: Mallampati scale class II Neurological: alert and oriented
[2023-12-27 17:46] LABS: HIV 1/2 Ab P24 Ag Result Negative (Negative)
[2023-12-27] MEDS: miSOPROStol 25 MCG TABLET 50 MCG BUCCAL (21:46)
[2023-12-28] VITALS (214 sets, daily range): BP systolic 62–124; BP diastolic 45–96; PULSE 68–153; RESP 18; TEMP 36.6–37.8; O2SAT 92–100
[2023-12-28] MEDS: miSOPROStol 25 MCG TABLET 50 MCG BUCCAL (01:55)
[2023-12-28] MEDS: LACTATED RINGERS 1,000 ML 125 ML IV CONT ×3 (06:24→17:21)
[2023-12-28] MEDS: OXYTOCIN 30 UNITS/NS 500 ML 30 UNITS/500 ML BAG IV CONT (06:24)
[2023-12-28] MEDS: fentaNYL CITRATE INJ (*CRX) 100 MCG/2 ML VIAL 50 MCG IV PUSH ×3 (06:37→08:39)
--- NOTE | 2023-12-28 07:13 | WPDOBADMIT ---
Obstetrics - Admit Note Admission Note: record reviewed. No pertinent additions to the history and/or any subsequent changes in the physical findings that are not consistent with the expected course of the were found. Additions to the history and/or subsequent changes in the physical findings follow. None.
--- NOTE | 2023-12-28 07:13 | PM.OBPNLAB ---
Pain Control Date/time seen: 12/28/23 07:05 Pain control: tolerating well Comments: Feeling cramping. Pelvic Exam Dilation (cm): 1 (1.5) Effacement (%): 75 station: -2 Amniotic membrane status: Intact Comments: positioned to pt left Contractions Monitor mode: External Contraction pattern: Irregular Contraction phase: Contraction Contraction intensity: Moderate Status status: Category l Assessment and Plan Pitocin rate (mU/min): 2 Assessment: induction ongoing Comments: CNM to bedside. Discussed plan of care and IOL process. Good change in cervical effacement and station. Discussed recommendation for amniotomy. Celina desires to consider this and discuss with her spouse. CNM to return.
[2023-12-28] MEDS: ONDANSETRON INJ 4 MG/2 ML VIAL IV PUSH ×2 (08:39→16:14)
[2023-12-28] MEDS: PHENYLEPHRINE 1,000 MCG/10 ML SYRINGE 100 MCG IV PUSH (09:39)
--- NOTE | 2023-12-28 11:11 | PM.OBPNLAB ---
Pain Control Date/time seen: 12/28/23 0803 Pain control: tolerating well Pelvic Exam Dilation (cm): 1 (1.5) Effacement (%): 75 station: -2 Amniotic membrane status: Intact Contractions Monitor mode: External Contraction pattern: Regular Contraction phase: Contraction Contraction intensity: Moderate Status status: Category l Assessment and Plan Pitocin rate (mU/min): 2 Comments: CNM to bedside. Discussed plan of care and option for amniotomy. Discussed risks, benefits, and expectations of breaking water. Patient is agreeable. Amniotomy performed and there was a small return of clear amniotic fluid. Patient tolerated procedure well. Pitocin turned off. Anticipate vaginal . Dr. Cruz updated.
--- NOTE | 2023-12-28 11:13 | PM.OBPNLAB ---
Pain Control Date/time seen: 12/28/23 11:05. CNM called RN for update Assessment and Plan Comments: Per RN, good cervical change to 3.5. FHTs reassuring. Pitocin remains off. Continue plan of care.
[2023-12-28] MEDS: ESCITALOPRAM OXALATE 10 MG TABLET PO (13:04)
[2023-12-28] MEDS: METOCLOPRAMIDE HCL INJ 10 MG/2 ML VIAL 5 MG IV PUSH (16:36)
--- NOTE | 2023-12-28 17:23 | PM.OBPNLAB ---
Pain Control Date/time seen: 12/28/23 17:23 Pelvic Exam Dilation (cm): 10 (1.5) Contractions Monitor mode: Internal Contraction pattern: Regular Contraction phase: Contraction Contraction intensity: Moderate Status status: Category ll Comments: Reassured by moderate variability and accelerations. Assessment and Plan Pitocin rate (mU/min): 2 Comments: Pushing with contractions. Anticipate vaginal .
--- NOTE | 2023-12-28 17:25 | PM.OBPRVD ---
OB - Vaginal Delivery Note Procedure Delivery date: 12/28/23 Events: Other (gestational thrombocytopenia) Induction method: Per Misoprostol Protocol Delivery augmentation: Rupture of Membranes Delivery monitor: External FHT and Internal Uterine Route of delivery: Episiotomy description: None Laceration Description: Vaginal (small 2nd degree) and Labial (left) Delivery repair: vicryl Specimen: No Quantitative Blood Loss (ml): 225 Anesthesia type: Epidural Disposition: Floor Complications: No immediate complications Narrative: Celina arrived for IOL due to gestational thrombocytopenia. She initially received cytotec bucally and pitocin was started. Amniotomy was performed and pitocin was stopped. She made steady cervical change to complete dilation and began pushing with contractions. The head was positioned occiput posterior. She pushed in a variety of positions and brought the head to complete crown. After the delivery of the head, a tight nuchal cord was identified and there was steady delivery of the anterior and posterior shoulders. The remainder of the was delivered in the somersault maneuver. The nuchal cord was reduced, and the was placed on the maternal abdomen and dried and stimulated by the nursery staff. After 1 minute of life, the cord was doubly clamped and cut. a small amount of brisk bleeding was noted and the placenta delivered spontaneously in the Schultze presentation. Cord blood, cord gases, and cord segment were obtained after the delivery of the placenta. a small 2nd degree, left vaginal laceration that continued to the left labia was repaired in the usual fashion. There was excellent uterine tone and hemostasis. All delivery counts correct. Mother and baby skin to skin in the delivery room. Baby Date of : 12/28/23 Time of : 18:45 Weeks of gestation at delivery: 40 gender: Male Weight (pounds): 0 (weight unavailable at the time of this note) presentation: vertex position: Left Occiput Anterior Placenta delivery description: Spontaneous and Normal Configuration Cord Vessel Description: 3 Vessels, Nuchal Cord, Tight and Delayed Cord Clamping score one minute: 7 score five minutes: 9
--- NOTE | 2023-12-28 17:27 | PM.OBDSVD ---
DS: Admitting Diagnosis Discharge Date 12/30/23 Admitting Diagnosis 28 y.o. G Term Gestational Thrombocytopenia DS: Discharge Diagnosis Discharge Diagnosis (1) (normal spontaneous vaginal delivery): Code(s): O80 - Encounter for full-term uncomplicated delivery Status: Acute (2) Mother currently breastfeeds: Status: Acute OB - DS: Summary Hospital Course Hospital Course: Uncomplicated OB Procedures : Ultrasound OB Procedures Intrapartum: Spontaneous Vag Delivery OB Procedures: : None Peripartum Data Infant Delivery Method: Natural Vaginal Laceration Description: Vaginal and Labial Episiotomy description: None complications: none Status at Discharge Functional status at discharge: independent ambulation Overall status at discharge: patient is progressing back to baseline Time Spent with Patient Time attestation: Total time spent providing and/or coordinating discharge services: Exam Narrative: Alert and oriented. Mood is pleasant and cooperative. Perineum with minimal edema. Fundus firm and below umbilicus. Const: General: cooperative, healthy appearing, no acute distress and alert Orientation/consciousness: patient oriented x3 Limitations: no limitations Resp: Effort & Inspection: normal respiratory effort and able to speak in complete sentences Auscultation: clear to auscultation bilaterally Cardio: Rate: regular rate GI: Inspection: normal to inspection Auscultation: normal bowel sounds : General: Yes bladder normal to palpation External Female Exam: other (lochia WNL) Bimanual exam- vagina & uterus: bladder normal to palpation Other: Fundus firm and below U Skin: General skin exam: normal color and no rashes or lesions noted Neuro: General: patient oriented x3 and moves all extremities Cognition (Neuro): normal cognition Extrem: General: normal to inspection and no calf tenderness Psych: Appearance: grossly normal Mental Status: mental status grossly normal Affect: normal affect Thought process: Normal thought process present DS: Data Data Completed and Pending Labs on day of discharge: Labs from last 24 hours 12/27/23 16:46 HIV 1&2 Ab/P24 Ag 4thGn Negative Antibody Screen Negative Discharge Plan Discharge Attending physician on discharge: Jacqueline Cruz Discharging Clinician: Lauryn Rankin Anticipated Discharge Date/Time: 12/30/23 07:32 Patient Disposition: Home, Self-Care Activity: pelvic rest Diet: as tolerated Wound Care Instructions: follow printed instructions Discharge Instructions: Continue taking your vitamin and any other supplements as previously directed (Examples: Iron, Vitamin D). You may take Tylenol 1000mg over the counter every 6 hours as needed for pain. Do not exceed 4000mg of Tylenol daily. You may continue using tucks pads and dermoplast spray if needed for a few more days. Depression Notify provider for signs or symptoms. These may include- Feelings: Feeling anxious, angry, hopeless, guilt, or loss of interest/pleasure in activities you normally enjoy. Mood swings or panic attacks. General: Extreme fatigue, loss of your appetite, feeling restless. Crying excessively, irritability, insomnia Psychological: Lack of concentration, depression or fear, unwanted thoughts Weight: Significant gain or loss Safety: Thoughts of harming yourself or your baby. Patient Instructions: Antibiotic Form Stand Alone Forms: General Discharge Information Follow-up/Referrals: Lauryn Rankin CNM [Certified Nurse Booster Pump Oiler] - (6 weeks exam) Discharge Medications: New docusate sodium 100 mg Capsule 100 mg PO BID PRN (Reason: Constipation) 14 Days Qty: 30 0RF ibuprofen 600 mg Tablet 600 mg PO Q6H PRN (Reason: Cramping) 14 Days Qty: 30 0RF Continued escita
[2023-12-28] MEDS: OXYTOCIN 30 UNITS/NS 500 ML 30 UNITS/500 ML BAG 125 UNITS IV CONT (19:28)
[2023-12-28] MEDS: ACETAMINOPHEN 325 MG TABLET 650 MG PO (22:29)
[2023-12-28] MEDS: WITCH HAZEL 40 PADS 1 PAD TOPICAL (22:30)
[2023-12-28] MEDS: BENZOCAINE 20% AER SPR (*SP) 56 GM CAN 1 SPRAY TOPICAL (22:30)
--- NOTE | 2023-12-28 23:21 | OBPPTRN ---
Patient transferred to post room #282 via wheelchair. Support person present. Oriented to unit, room, information board, rooming in, admission packet and security measures. Patient verbalizes understanding.
[2023-12-29 04:04] VITALS: BP 113/78; PULSE 89; RESP 16; TEMP 36.2; O2SAT 99
[2023-12-29] MEDS: IBUPROFEN 600 MG TABLET PO ×2 (04:06→16:19)
[2023-12-29 06:00] LABS: Hematocrit 35.4 % (37.0-47.0); Hemoglobin 11.3 g/dL (12.0-15.0)
[2023-12-29 07:35] VITALS: BP 105/71; PULSE 90; RESP 16; TEMP 36.4; O2SAT 100
--- NOTE | 2023-12-29 07:56 | PM.OBPNVD ---
OB - PN: Subj Subjective Date/time seen: 12/29/23 07:56 Patient comments: no complaints and pain well controlled baby status: doing well OB - PN: Obj Data Labs 12/29/23 04:08 Labs: Laboratory Results - last 24 hr 12/29/23 04:08 Hgb 11.3 L Hct 35.4 L OB - PN A/P Plan day: 1 Plan: routine care Time Spent With Patient Time: Total time spent is greater than 50% in coordination of care (as documented) at patient's floor/unit and/or counseling patient: Exam : Bimanual exam- vagina & uterus: other (Uterus firm, nt @U)
[2023-12-29] MEDS: ESCITALOPRAM OXALATE 10 MG TABLET PO (08:58)
[2023-12-29] MEDS: DOCUSATE SODIUM 100 MG CAPSULE PO ×2 (08:58→16:19)
[2023-12-29] MEDS: ACETAMINOPHEN 325 MG TABLET 650 MG PO ×2 (08:58→19:45)
[2023-12-29] MEDS: MULTIVIT/MIN/PREN/FOL AC/IRON TABLET 1 TAB PO (08:58)
--- NOTE | 2023-12-29 09:25 | PC.NURSE ---
0850: Consulted with patient to assess needs related to . Discussed with mother her successes, concerns and any questions she has. We reviewed working with the , protecting her nipples with an optimal deep latch, good positioning. Encouraged understanding the benefits of skin to skin, responding to feeding cues, frequencies of feeding 8-12 times in 24 hours (approximately 2-3 hours), duration of feedings, milk production. is due to eat now and mother is attempting skin to skin to help wake baby. He was circumcised this morning and is sleepy. Mother also has concerns about latch. She has bruising on her nipples and feels some pain with feeding. 0925: awake after brim curler visit, but sleepy when placed next to mom. Attempted to latch with some good effort, but baby is a tongue sucker and if he does latch, he pushes the nipple out with his tongue. Reviewed positioning and alignment, supporting breast, off-centered (asymmetrical latch) and leading with the chin with big, open, wide gape. Mother is open to trying a nipple shield to help facilitate a consistent latch. latched optimally to the [right] breast in [cross cradle] position. Education given to the mother of how to visualize the suckling. The infant was [able] to maintain latch without discomfort to mother. He was sleepy and did give some good sucks and mother was leaking colostrum. Encouraged mom to take a break, eat her breakfast and feed again within a few hours, sooner if is giving feeding cues. Reviewed use and cleaning of the nipple shield as well as pumping with consistent use of shield and risks associated with shield use. Mother voiced understanding of the education shared, to call for assistance if the does not latch or if there is discomfort with . Reported to the Primary RN.
--- NOTE | 2023-12-29 11:30 | PC.NURSE ---
Mother called out for assistance. Infant was more alert and gave better effort to latch than the last feeding. We started in cross cradle on the right breast and then moved to football. Mother states they were using football position and she did find it to be more comfortable. Infant was sleepy off and on but did latch and maintain for short periods of time. would give good sucks for a brief time and then needed stimulation to suck. Nipple shield was not used this time because infant was able to maintain his deep latch. When he was suckling, mother states it felt better than previously. Discussed signs of a deep latch and to keep baby close, skin to skin, tummy to tummy and nose and chin close to the breast. Mother is very receptive to teaching and father is very helpful and supportive. Encouraged mother to rest today when infant sleeps, as he will most likely cluster feed tonight. We counted 5 minutes feeding duration with a 15-20 min attempt time. Reported to Primary RN. Encouraged responsive feeding if cues are noted or to attempt feeding again in 2-3 hours. Parents verbalized understanding.
[2023-12-29 13:45] LABS: Rapid Plasma Reagin Non-Reactive (NonReactive)
--- NOTE | 2023-12-29 14:20 | PC.NURSE ---
Mother called out for assistance. Infant was awake and fussing, mother had fed 5-10 minutes on the left side and was attempting to feed on the right side. Mother states infant was off and on the left breast and that she did not use the nipple shield. Attempted to latch in cross cradle hold. Mother educated on how to place her hands and hold her breast. latched eagerly but after sucking once or twice he would let go of the nipple. Applied nipple shield to help infant maintain his latch. After 15 more minutes of attempting with some suckles off and on but no consistent latch, fell asleep. Encouraged parents to feed in another 2-3 hours and call for assistance as needed.
[2023-12-29 16:00] VITALS: BP 118/83; PULSE 99; RESP 16; TEMP 36.7; O2SAT 98
[2023-12-29 19:47] VITALS: BP 99/73; PULSE 98; RESP 18; TEMP 36.3; O2SAT 99
[2023-12-30] MEDS: IBUPROFEN 600 MG TABLET PO (04:47)
--- NOTE | 2023-12-30 07:31 | PM.OBPNVD ---
OB - PN: Subj Subjective Date/time seen: 12/30/23 07:31 Interval history: Doing well. Urinating without difficulty. Denies passing any large clots. Denies dizziness with ambulating. Tolerating po food and fluids. Bonding with . Patient comments: pain well controlled [place] baby status: nursing well feeding status: exclusively breast feeding OB - PN: Obj Data Labs 12/29/23 04:08 Labs: Laboratory Results - last 24 hr 12/27/23 16:46 RPR Non-reactive OB - PN A/P Assessment and Plan (1) (normal spontaneous vaginal delivery): Code(s): O80 - Encounter for full-term uncomplicated delivery Status: Acute (2) Mother currently breastfeeds: Status: Acute Plan day: 2 Plan: discharge home Time Spent With Patient Time: Total time spent is greater than 50% in coordination of care (as documented) at patient's floor/unit and/or counseling patient: Review of Systems Review of Systems: All systems reviewed & are unremarkable except as noted in HPI and below Exam Narrative: Alert and oriented. Mood is pleasant and cooperative. Perineum with minimal edema. Fundus firm and below umbilicus. Const: General: cooperative, healthy appearing, no acute distress and alert Orientation/consciousness: patient oriented x3 Limitations: no limitations Resp: Effort & Inspection: normal respiratory effort and able to speak in complete sentences Auscultation: clear to auscultation bilaterally Cardio: Rate: regular rate GI: Inspection: normal to inspection Auscultation: normal bowel sounds : General: Yes bladder normal to palpation External Female Exam: other (lochia WNL) Bimanual exam- vagina & uterus: bladder normal to palpation Other: Fundus firm and below U Skin: General skin exam: normal color and no rashes or lesions noted Neuro: General: patient oriented x3 and moves all extremities Cognition (Neuro): normal cognition Extrem: General: normal to inspection and no calf tenderness Psych: Appearance: grossly normal Mental Status: mental status grossly normal Affect: normal affect Thought process: Normal thought process present
[2023-12-30] MEDS: ACETAMINOPHEN 325 MG TABLET 650 MG PO ×2 (07:33→15:31)
[2023-12-30 08:15] VITALS: BP 122/83; PULSE 88; RESP 18; TEMP 36.3; O2SAT 99
--- NOTE | 2023-12-30 08:30 | PC.NURSE ---
Consulted with mother concerning needs and she shared her ability to independently latch infant optimally without pain. She has some initial tenderness with latch and is using lanolin with good hand hygiene. Observed an independent latch on the right breast. Infant is consistently sucking and has frequent swallows. Mother is feeding appropriately for growth of and understands stimulating infant to eat if needed. has had appropriate feedings in the last 24 hours meets the outcomes for weight, output, blood sugar and jaundice at this time. Helped mother set up her spectra pump and fitted with the appropriate size flange (24mm). Reinforced understanding of milk production, transition of milk, signs of adequate intake, transition of stool, prevention/relief of engorgement, responsive watching for feeding cues, the different methods of stimulating infant to breastfeed 1-3 hours after the start of the last feeding, community resources, and when to call a provider using the resource of the feeding sheet along with the mom and baby guide. Mother voiced understanding of the information shared, is confident to continue effectively her at home, when to call for assistance, denies any additional assistance or education at this time. Reported to the Primary RN.
[2023-12-30] MEDS: MULTIVIT/MIN/PREN/FOL AC/IRON TABLET 1 TAB PO (09:18)
[2023-12-30] MEDS: DOCUSATE SODIUM 100 MG CAPSULE PO (09:18)
[2023-12-30] MEDS: ESCITALOPRAM OXALATE 10 MG TABLET PO (09:18)
--- NOTE | 2023-12-30 09:22 | PC.NURSE ---
Patient viewed the discharge video Mother & Baby Care, The First Two Weeks . Patient was given the opportunity and encouraged to ask questions. Patient verbalized understanding of information shared and has been given the mother/baby guide for home reference.
[2023-12-31 10:29] VITALS: BP 124/85; PULSE 82; RESP 18; TEMP 36.7; O2SAT 100
== END 2023-12-30 16:14 | disposition home or self-care (01) | DRG 807 ==
LOC: ANHLDR 12-28 17:31 → ANHOB2 12-28 23:48
PROVIDERS: Advanced Practice Midwife; Admitting Provider Obstetrics & Gynecology Gynecology; PCP Family Medicine; Visit Provider Obstetrics & Gynecology Gynecology
DX: O99.12 Other diseases of the blood and blood-forming organs and certain disorders involving the immune mechanism complicating childbirth (principal); Z37.0 Single live birth; D69.6 Thrombocytopenia, unspecified; O70.1 Second degree perineal laceration during delivery; O69.1XX0 Labor and delivery complicated by cord around neck, with compression, not applicable or unspecified; Z3A.40 40 weeks gestation of pregnancy
CPT/HCPCS: 36415; 85014; 85018; 85025; 86592; 86703; 86850; 86900; 86901; A9270; G0432; J2371; J2405; J2590; J2765; J2795; J3010; J7120